=== PATIENT | male | born 1975 | race Caucasian/White ===

== ENCOUNTER 2016-03-17 17:30 | Emergency (ER) | payer MEDICAID ==
[~2016-03-17] VITALS: Ht 188 cm; Wt 113.6 kg
[~2016-03-17 17:30] MED LIST: ALLOPURINOL100 MG PO; ALLOPURINOL300 MG PO; ANTIVERT 12.512.5 MG PO; ANTIVERT 25MG25 MG PO; EC NAPROSYN375 MG PO; FLEXERIL 1010 MG/TAB PO; HCTZ 25MG TAB25 MG PO; INDERAL 20MG20 MG PO; INDOCIN50 M1 RC; INDOCIN50 MG PO; MIDRIN CAPSULE1 CAP PO; MOTRIN 600600 MG/TAB PO; NAPROSYN500 MG PO; NEURONTIN100 MG/CAP PO; NO HOME MEDICATIONS; NORCO 325 MG-51 TAB PO; NORCO 325 MG-7.1 TAB PO; PERCOCET 325 MG1 TA2 PO; PHENERGAN 25 TA25 MG PO; PREDNISONE20 MG PO; ROXICODONE 55 MG/TAB PO; VALIUM 5MG T5 MG/TAB PO; ZYLOPRIM 100MG100 MG PO
[2016-03-17 17:35] VITALS: BP 113/82; PULSE 84; TEMP 97.9
[2016-03-17] MEDS ORDERED: CANA100T PO (17:55)
[2016-03-17] MEDS ORDERED: COZAAR 25MG25 MG/TAB PO (17:56)
[2016-03-17] MEDS ORDERED: GLUCOPHAGE XR500 M1 PO (17:56)
[2016-03-17 18:33] LABS: CALCIUM 9.7 mg/dL (8.4-10.2); CREATININE, serum 1.21 mg/dL (0.66-1.25); POTASSIUM 3.9 mmol/L (3.4-5.0); URIC ACID 2.4 mg/dL (3.5-8.5)
[2016-03-17 18:34] LABS: BASO # 0.1 (0.0-0.2); BASO % 0.6 % (0.0-2.0); EOS # 0.2 (0.0-0.7); EOS % 2.3 % (0-4.0); GRAN # 4.4 (1.4-6.5); GRAN % 53.6 % (42.2-75.2); HEMATOCRIT 41.4 % (42.0-52.0); HEMOGLOBIN 14.2 g/dl (13.5-18.0); LYMPH # 2.9 (1.2-3.4); LYMPH % 34.9 % (20.0-51.0); MEAN CELL VOLUME 93 fl (80.0-100.0); MEAN CORPUSCULAR HEMOGLOBIN 32 pg (27.0-31.0); MEAN CORPUSCULAR HGB CONC 34 g/dl (33.0-37.0); MONO # 0.7 (0.1-0.6); MONO % 8.1 % (1.7-9.3); PLATELET COUNT 250 K/mm3 (130-400); RED BLOOD COUNT 4.44 M/mm3 (4.20-5.60); REDCELL DISTRIBUTION WIDTH-CV 11.9 % (11.5-14.5); WHITE BLOOD COUNT 8.3 K/mm3 (4.8-10.8)
[2016-03-17] MEDS ORDERED: NORCO 325 MG-51 TAB PO (18:54)
== END 2016-03-17 19:08 | disposition home or self-care (01) ==
LOC: COL.ER 17:30
PROVIDERS: Emergency Medicine
DX: M10.071 Idiopathic gout, right ankle and foot (principal); M79.671 Pain in right foot; E11.9 Type 2 diabetes mellitus without complications; Z79.84 Long term (current) use of oral hypoglycemic drugs

== ENCOUNTER 2016-11-23 00:43 | Emergency (ER) | payer MEDICAID ==
[~2016-11-23] VITALS: Ht 188 cm; Wt 120.9 kg
[~2016-11-23 00:43] MED LIST changes: +CANA100T PO; +COZAAR 25MG25 MG/TAB PO; +GLUCOPHAGE XR500 M1 PO
[2016-11-23 00:54] VITALS: BP 137/83; TEMP 97.6
[2016-11-23] MEDS ORDERED: MAGIC MOUTH PO (02:36)
[2016-11-23] MEDS ORDERED: ATARAX 25MG25 MG/TAB PO (02:36)
[2016-11-23 02:55] VITALS: PULSE 73
== END 2016-11-23 02:55 | disposition home or self-care (01) ==
LOC: COL.ER 00:43
DX: L51.9 Erythema multiforme, unspecified (principal); E11.9 Type 2 diabetes mellitus without complications; I10 Essential (primary) hypertension; M10.9 Gout, unspecified; Z79.84 Long term (current) use of oral hypoglycemic drugs; Z87.891 Personal history of nicotine dependence; Z86.73 Personal history of transient ischemic attack (TIA), and cerebral infarction without residual deficits

== ENCOUNTER 2017-02-23 09:04 | Emergency (ER) | payer MEDICAID ==
[~2017-02-23] VITALS: Ht 188 cm; Wt 72.7 kg
[~2017-02-23 09:04] MED LIST changes: +ATARAX 25MG25 MG/TAB PO; +MAGIC MOUTH PO
[2017-02-23 09:10] VITALS: BP 127/85; TEMP 99.6
[2017-02-23 09:51] LABS: BASO % 0.2 % (0.0-2.0); EOS % 0.2 % (0-4.0); GRAN # 3.3 (1.4-6.5); GRAN % 67.4 % (42.2-75.2); HEMATOCRIT 43.7 % (42.0-52.0); LYMPH % 20.7 % (20.0-51.0); MEAN CELL VOLUME 94 fl (80.0-100.0); MEAN CORPUSCULAR HEMOGLOBIN 32 pg (27.0-31.0); MEAN CORPUSCULAR HGB CONC 34 g/dl (33.0-37.0); MONO # 0.6 (0.1-0.6); MONO % 11.3 % (1.7-9.3); PLATELET COUNT 144 K/mm3 (130-400); RED BLOOD COUNT 4.67 M/mm3 (4.20-5.60); WHITE BLOOD COUNT 4.9 K/mm3 (4.8-10.8)
[2017-02-23 10:00] LABS: STREP SCREEN NEGATIVE
[2017-02-23 10:02] LABS: ADJUSTED CALCIUM 8.6 mg/dL (8.4-10.2); ALBUMIN 4.4 gm/dL (3.5-5.0); BILIRUBIN,TOTAL 0.8 mg/dL (0.0-1.0); CALCIUM 8.9 mg/dL (8.4-10.2); CREATININE, serum 1.27 mg/dL (0.66-1.25); POTASSIUM 3.7 mmol/L (3.4-5.0); TOTAL PROTEIN 7.5 gm/dL (6.4-8.2)
[2017-02-23 10:16] LABS: INFLUENZA A NEGATIVE; INFLUENZA B NEGATIVE
[2017-02-23 11:05] VITALS: PULSE 103
== END 2017-02-23 11:05 | disposition home or self-care (01) ==
LOC: COL.ER 09:04
PROVIDERS: Physician Assistant Medical
DX: J11.1 Influenza due to unidentified influenza virus with other respiratory manifestations (principal); R11.2 Nausea with vomiting, unspecified; Z79.84 Long term (current) use of oral hypoglycemic drugs
CPT/HCPCS: J1885; J2405; J7030

== ENCOUNTER 2018-04-03 19:08 | Emergency (ER) | payer MEDICAID ==
[~2018-04-03] VITALS: Ht 188 cm; Wt 111.4 kg
[~2018-04-03 19:08] MED LIST changes: +GLUCOPHAGE500 MG/TAB PO; +JANUVIA 100MG100 MG PO; +LEVEMIR FLEX100 U/ML SQ; +THE MEDICINE SH1 DE3 MC
[2018-04-03 19:09] VITALS: TEMP 96.6
[2018-04-03] MEDS ORDERED: FLEXERIL 1010 MG/TAB PO (19:44)
[2018-04-03] MEDS ORDERED: NORCO 325 MG-51 TAB PO (19:44)
[2018-04-03 22:19] VITALS: BP 118/89; PULSE 81
== END 2018-04-03 22:20 | disposition home or self-care (01) ==
LOC: COL.ER 19:08
DX: S39.012A Strain of muscle, fascia and tendon of lower back, initial encounter (principal); M62.830 Muscle spasm of back; E11.9 Type 2 diabetes mellitus without complications; Z79.4 Long term (current) use of insulin; X50.1XXA Overexertion from prolonged static or awkward postures, initial encounter
CPT/HCPCS: J1170; J1885; J7030

== ENCOUNTER → 2018-04-21 | Outpatient (CLI) | payer MEDICAID | LOC: COL.VAS 08:42 | DX: R42 Dizziness and giddiness (principal) ==

== ENCOUNTER 2018-08-28 21:48 | Emergency (ER) | payer MEDICAID ==
[~2018-08-28] VITALS: Ht 188 cm; Wt 111.4 kg
[2018-08-28 21:50] VITALS: BP 132/76; TEMP 97.1
[2018-08-28 22:38] LABS: STREP SCREEN NEGATIVE
[2018-08-28 23:00] VITALS: PULSE 97
== END 2018-08-28 23:03 | disposition home or self-care (01) ==
LOC: COL.ER 21:48
PROVIDERS: Nurse Practitioner
DX: H10.9 Unspecified conjunctivitis (principal); E11.9 Type 2 diabetes mellitus without complications; I10 Essential (primary) hypertension; M10.9 Gout, unspecified; Z87.891 Personal history of nicotine dependence; Z79.4 Long term (current) use of insulin

== ENCOUNTER 2018-11-29 08:20 | Emergency (ER) | payer MEDICAID ==
[~2018-11-29] VITALS: Ht 188 cm; Wt 121.9 kg
[2018-11-29 08:27] VITALS: BP 134/84; TEMP 98.4
[2018-11-29] MEDS ORDERED: CELEBREX 200MG200 MG PO (08:56)
[2018-11-29] MEDS ORDERED: NORCO 325 MG-51 TAB PO (09:11)
[2018-11-29 09:25] VITALS: PULSE 89
== END 2018-11-29 09:25 | disposition home or self-care (01) ==
LOC: COL.ER 08:20
DX: G56.03 Carpal tunnel syndrome, bilateral upper limbs (principal); E11.9 Type 2 diabetes mellitus without complications; M10.9 Gout, unspecified; Z79.4 Long term (current) use of insulin; Z87.891 Personal history of nicotine dependence
CPT/HCPCS: J1885

== ENCOUNTER → 2019-01-11 | Outpatient (CLI) | payer MEDICAID ==
[~2019-01-11] MED LIST changes: +CELEBREX 200MG200 MG PO
[2019-01-11 13:08] LABS: URIC ACID 8.4 mg/dL (3.5-8.5)
[2019-01-11 13:16] LABS: C-REACTIVE PROTEIN < 0.5 mg/dL (0.0-0.9)
[2019-01-11 22:39] LABS: RHEUMATOID FACTOR-SCREEN <15 IU/mL (0-29)
== END ==
LOC: COL.LAB 12:03
PROVIDERS: Physician Assistant
DX: M25.50 Pain in unspecified joint (principal)

== ENCOUNTER 2019-02-24 18:17 | Emergency (ER) | payer MEDICAID ==
[~2019-02-24] VITALS: Ht 188 cm; Wt 120.5 kg
[2019-02-24 18:31] VITALS: TEMP 97.7
[2019-02-24 21:00] LABS: BASO % 0.4 % (0.0-2.0); EOS # 0.1 (0.0-0.7); EOS % 0.9 % (0-4.0); GRAN # 8.2 (1.4-6.5); GRAN % 75.8 % (42.2-75.2); HEMATOCRIT 46.6 % (42.0-52.0); HEMOGLOBIN 16.5 g/dl (13.5-18.0); LYMPH # 1.7 (1.2-3.4); LYMPH % 15.4 % (20.0-51.0); MEAN CELL VOLUME 92 fl (80.0-100.0); MEAN CORPUSCULAR HEMOGLOBIN 33 pg (27.0-31.0); MEAN CORPUSCULAR HGB CONC 35 g/dl (33.0-37.0); MONO # 0.8 (0.1-0.6); PLATELET COUNT 176 K/mm3 (130-400); RED BLOOD COUNT 5.06 M/mm3 (4.20-5.60); REDCELL DISTRIBUTION WIDTH-CV 12.4 % (11.5-14.5)
[2019-02-24 21:15] LABS: ALANINE AMINOTRANSFERASE 52 U/L (21-72); ALBUMIN 4.6 gm/dL (3.5-5.0); ALKALINE PHOSPHATASE 75 U/L (50-136); ANION GAP 12 mmol/L (7-16); AST,SGOT 39 U/L (15-37); BILIRUBIN,TOTAL 0.8 mg/dL (0.0-1.0); BLOOD UREA NITROGEN 16 mg/dL (9-20); CALCIUM 9.5 mg/dL (8.4-10.2); CARBON DIOXIDE 24 mmol/L (22-30); CHLORIDE 105 mmol/L (98-107); CREATININE, serum 0.94 (0.66-1.25); GLUCOSE 120 mg/dL (74-106); LIPASE 47 U/L (23-300); POTASSIUM 3.9 mmol/L (3.4-5.0); SODIUM 141 mmol/L (137-145); TOTAL PROTEIN 8.1 gm/dL (6.4-8.2)
[2019-02-24 21:16] LABS: C-REACTIVE PROTEIN < 0.5 mg/dL (0.0-0.9)
[2019-02-24 22:20] VITALS: BP 120/80; PULSE 79
[2019-02-24] MEDS ORDERED: ZOFRAN 4MG T4 MG/TAB PO (22:36)
== END 2019-02-24 22:30 | disposition home or self-care (01) ==
LOC: COL.ER 18:17
PROVIDERS: Nurse Practitioner Primary Care
DX: K52.9 Noninfective gastroenteritis and colitis, unspecified (principal); E11.9 Type 2 diabetes mellitus without complications; I10 Essential (primary) hypertension; Z79.84 Long term (current) use of oral hypoglycemic drugs
CPT/HCPCS: J2405; J3010; J7030

== ENCOUNTER 2019-03-02 07:42 | Emergency (ER) | payer MEDICAID ==
[~2019-03-02] VITALS: Ht 188 cm; Wt 120.5 kg
[~2019-03-02 07:42] MED LIST changes: +ZOFRAN 4MG T4 MG/TAB PO
[2019-03-02 07:59] VITALS: TEMP 97.6
[2019-03-02] MEDS ORDERED: ANUSOL-HC2.5% RC (09:16)
[2019-03-02] MEDS ORDERED: ZOFRAN ODT4 MG PO (09:17)
[2019-03-02 09:30] VITALS: BP 138/81; PULSE 78
== END 2019-03-02 09:30 | disposition home or self-care (01) ==
LOC: COL.ER 07:42
DX: K52.9 Noninfective gastroenteritis and colitis, unspecified (principal); E11.9 Type 2 diabetes mellitus without complications; Z79.84 Long term (current) use of oral hypoglycemic drugs

== ENCOUNTER 2019-07-13 17:33 | Emergency (ER) | payer MEDICAID ==
[~2019-07-13] VITALS: Ht 185.4 cm; Wt 120.5 kg
[~2019-07-13 17:33] MED LIST changes: +AIMOVIG AU70 MG/1 M1 SQ; +AMITRIPTYLINE H10 M1 PO; +AMITRIPTYLINE H50 M1 PO; +ANUSOL-HC2.5% RC; +BYDUREON PEN2 MG SQ; +DEPAKOTE ER 50500 MG PO; +EFFEXOR XR75 MG/CAP PO; +INDERAL 10MG10 MG PO; +LIPITOR 40MG TA40 MG PO; +PLAVIX 75MG TAB75 MG PO; +PRIL40 PO; +PROAIR HFA0.09 MG/AC IH; +ULTRAM 50MG TAB50 MG PO; +VALTREX 50500 MG/TAB PO; +VITAMIND3 5000 PO; +ZINC SO4 PO; +ZITHROMAX500 M2 PO; +ZOFRAN ODT4 MG PO
[2019-07-13 17:34] VITALS: TEMP 98
[2019-07-13 18:33] LABS: BASO % 0.7 % (0.0-2.0); EOS # 0.2 (0.0-0.7); EOS % 2.6 % (0-4.0); GRAN # 3.3 (1.4-6.5); GRAN % 53.6 % (42.2-75.2); HEMATOCRIT 37.6 % (42.0-52.0); HEMOGLOBIN 12.9 g/dl (13.5-18.0); LYMPH # 2.1 (1.2-3.4); LYMPH % 35.3 % (20.0-51.0); MEAN CELL VOLUME 93 fl (80.0-100.0); MEAN CORPUSCULAR HEMOGLOBIN 32 pg (27.0-31.0); MEAN CORPUSCULAR HGB CONC 34 g/dl (33.0-37.0); MEAN PLATELET VOLUME 12.1 fl (7.4-10.4); MONO # 0.5 (0.1-0.6); MONO % 7.6 % (1.7-9.3); PLATELET COUNT 143 K/mm3 (130-400); RED BLOOD COUNT 4.04 M/mm3 (4.20-5.60); REDCELL DISTRIBUTION WIDTH-CV 13.2 % (11.5-14.5)
[2019-07-13 18:43] LABS: ALBUMIN 3.6 gm/dL (3.5-5.0); BILIRUBIN,TOTAL 0.4 mg/dL (0.0-1.0); CALCIUM 8.6 mg/dL (8.4-10.2); CREATININE, serum 1.02 (0.66-1.25); POTASSIUM 3.8 mmol/L (3.4-5.0); TOTAL PROTEIN 6.5 gm/dL (6.4-8.2)
[2019-07-13 19:13] LABS: COLLECTION METHOD CLEAN CATCH
[2019-07-13 19:27] LABS: MUCOUS Present /lpf; PH 5 (5-8); SQUAMOUS EPITHELIAL 0-2 /hpf; URINE APPEARANCE Clear; URINE BACTERIA None Seen /hpf; URINE BILIRUBIN Negative (NEGATIVE); URINE BLOOD Negative (NEGATIVE); URINE COLOR Yellow; URINE GLUCOSE Negative (NEGATIVE); URINE KETONE Negative (NEGATIVE); URINE LEUKOCYTE ESTERASE Negative (NEGATIVE); URINE NITRATE Negative (NEGATIVE); URINE PROTEIN(semi-quant) Negative (NEGATIVE); URINE RBC 0-2 /hpf; URINE UROBILINOGEN Negative (NEGATIVE); URINE WBC 0-2 /hpf
[2019-07-13 20:09] VITALS: BP 132/86; PULSE 81
== END 2019-07-13 20:10 | disposition home or self-care (01) ==
LOC: COL.ER 17:33
PROVIDERS: Emergency Medicine
DX: S43.401A Unspecified sprain of right shoulder joint, initial encounter (principal); S39.012A Strain of muscle, fascia and tendon of lower back, initial encounter; S16.1XXA Strain of muscle, fascia and tendon at neck level, initial encounter; I10 Essential (primary) hypertension; E11.9 Type 2 diabetes mellitus without complications; Z79.4 Long term (current) use of insulin; Z79.02 Long term (current) use of antithrombotics/antiplatelets; V43.52XA Car driver injured in collision with other type car in traffic accident, initial encounter
CPT/HCPCS: J1170; J1885; J7030; Q9967

== ENCOUNTER 2019-12-15 20:21 | Emergency (ER) | payer OTHER, MEDICAID ==
[~2019-12-15] VITALS: Ht 177.8 cm; Wt 90.9 kg
[2019-12-15 20:22] VITALS: TEMP 97
[2019-12-15 20:54] LABS: BASO % 0.6 % (0.0-2.0); EOS # 0.1 (0.0-0.7); EOS % 1.4 % (0-4.0); GRAN # 3.3 (1.4-6.5); GRAN % 45.5 % (42.2-75.2); HEMATOCRIT 44.2 % (42.0-52.0); LYMPH # 3.3 (1.2-3.4); MEAN CELL VOLUME 90 fl (80.0-100.0); MEAN CORPUSCULAR HEMOGLOBIN 33 pg (27.0-31.0); MEAN CORPUSCULAR HGB CONC 36 g/dl (33.0-37.0); MONO # 0.4 (0.1-0.6); MONO % 5.9 % (1.7-9.3); PLATELET COUNT 192 K/mm3 (130-400); RED BLOOD COUNT 4.93 M/mm3 (4.20-5.60); REDCELL DISTRIBUTION WIDTH-CV 11.7 % (11.5-14.5)
[2019-12-15 21:01] LABS: ALANINE AMINOTRANSFERASE 57 U/L (4-49); ALBUMIN 4.6 gm/dL (3.5-5.0); ALCOHOL(ethanol),MEDICAL < 10 mg/dL; ALKALINE PHOSPHATASE 115 U/L (50-136); ANION GAP 12 mmol/L (7-16); AST,SGOT 73 U/L (15-37); BILIRUBIN,TOTAL 0.8 mg/dL (0.0-1.0); BLOOD UREA NITROGEN 17 mg/dL (9-20); CALCIUM 9.4 mg/dL (8.4-10.2); CARBON DIOXIDE 25 mmol/L (22-30); CHLORIDE 99 mmol/L (98-107); CREATININE, serum 1.08 (0.66-1.25); GLUCOSE 377 mg/dL (74-106); POTASSIUM 3.8 mmol/L (3.4-5.0); SODIUM 136 mmol/L (137-145); TOTAL PROTEIN 7.7 gm/dL (6.4-8.2)
[2019-12-15 22:10] VITALS: BP 141/86; PULSE 72
== END 2019-12-15 22:10 | disposition other institution (70) ==
LOC: COL.ER 20:21
PROVIDERS: Family Medicine
DX: S82.51XC Displaced fracture of medial malleolus of right tibia, initial encounter for open fracture type IIIA, IIIB, or IIIC (principal); S32.019A Unspecified fracture of first lumbar vertebra, initial encounter for closed fracture; S32.029A Unspecified fracture of second lumbar vertebra, initial encounter for closed fracture; S30.811A Abrasion of abdominal wall, initial encounter; S50.312A Abrasion of left elbow, initial encounter; S50.311A Abrasion of right elbow, initial encounter; S40.812A Abrasion of left upper arm, initial encounter; S40.811A Abrasion of right upper arm, initial encounter; R40.2410 Glasgow coma scale score 13-15, unspecified time; I10 Essential (primary) hypertension; E11.9 Type 2 diabetes mellitus without complications; Z88.8 Allergy status to other drugs, medicaments and biological substances; Z79.02 Long term (current) use of antithrombotics/antiplatelets; Z79.84 Long term (current) use of oral hypoglycemic drugs; V29.9XXA Motorcycle rider (driver) (passenger) injured in unspecified traffic accident, initial encounter
CPT/HCPCS: J0690; J2250; J2405; J3010; J7030; Q9967

== ENCOUNTER → 2020-11-25 | Outpatient (CLI) | payer OTHER | LOC: COL.LAB 09:03 → COL.RAD 09:28 → COL.LAB 09:28 | DX: Z02.71 Encounter for disability determination (principal); M54.5 Low back pain ==